=== PATIENT | female | born 1995 | race Caucasian/White ===

== ENCOUNTER → 2018-01-07 | Outpatient (CLI) | payer OTHER ==
--- NOTE | 2018-01-07 22:17 | MR ---
EXAMINATION TYPE: MR brain wo/w con DATE OF EXAM: 01/07/2018 COMPARISON: NONE HISTORY: MS Symptoms, Double Vision, Numbness, Weakness TECHNIQUE: Multiplanar, multisequence images of the brain and brainstem is performed without and with IV contras t, utilizing 5.5 mL intravenous Gadavist gadolinium contrast is administered intravenously. Demyelin ating disease protocol with additional Sagittal Flair sequence performed. FINDINGS: T2 Lesions Present : No Approximate Number of Lesions: N/A Locations Identified : N/A Size of Reference Lesion(s): N/A Enhancing Lesion(s) Present: No T1 Hypointense Lesion(s) Present: N/A Change from Prior: N/A Diffusion weighted images demonstrate no evidence of a recent infarct or other diffusion abnormality. There is no worrisome extra-axial fluid collection. The ventricular system and cisternal spaces ar e normal in size and appearance. The brain volume is age appropriate. Midline structures demonstrate normal morphology. The craniocervical junction appears within normal limits. Post contrast images demonstrate no abnormal enhancement. The dural venous sinuses appear pa tent. There is 1.3 cm mucous retention cyst or polyp inferior right maxillary sinus otherwise paranas al sinuses are clear. The globes are intact bilaterally. IMPRESSION: No suspicious white matter changes seen. No suspicious enhancement noted.
== END | disposition home or self-care (01) ==
LOC: RADMRIMAIN 20:58
PROVIDERS: ATTEND Psychiatry & Neurology Neurology
DX: G52.9 Cranial nerve disorder, unspecified (principal); G51.9 Disorder of facial nerve, unspecified
CPT/HCPCS: 70553; A9581

== ENCOUNTER → 2018-12-10 | Outpatient (CLI) | payer OTHER ==
--- NOTE | 2018-12-10 14:39 | US ---
EXAMINATION TYPE: Transabdominal DATE OF EXAM: 12/10/2018 2:17 PM COMPARISON: NONE CLINICAL HISTORY: Confirm Dates Z36. EXAM PERFORMED: Transabdominal (TA) EXAM MEASUREMENTS: GESTATIONAL AGE / DATING Physician Established: (10 weeks/4 days) EDC: 07/04/19 Dates by LMP: (10 weeks/4 days) EDC: 07/04/19 Dates by First Scan: ( weeks/ days) EDC: No previous Dates by Current Scan for: (10 weeks/ 6 days) EDC: 07/02/19 MATERNAL ANATOMY Uterus: 13.6 x 7.6 x 7.0 cm Right Ovary: 3.6 x 2.1 x 1.9 cm Left Ovary: 3.9 x 2.7 x 2.4 cm Post CDS / Adnexa: wnl Presence of free fluid: no Presence of corpus luteal cyst: no Presence of subchorionic bleed: no GESTATION / SURVEY CRL: 3.7 cm (10 weeks/4 days) MSD: 4.9 (11 weeks/0 days) Yolk Sac (normal less than 6mm): 0.3 cm Heart Rate: 183 bpm Rhythm: Normal IUP: Viable IUP Date of LMP: 09/27/2018 . Single live intrauterine gestation is confirmed as gestational sac, yolk sac, and pole are pres ent. No free fluid in pelvic cul-de-sac. Both ovaries are seen. There is no suspicious extra ovarian adnexal mass identified bilaterally. IMPRESSION: Single live intrauterine gestation is confirmed, mean crown-rump length is 3.7 cm corresp onding to a 10 week 4 day old fetus.
== END | disposition home or self-care (01) ==
LOC: RADUSWWP 13:51
PROVIDERS: ATTEND Obstetrics & Gynecology
DX: Z36.89 Encounter for other specified antenatal screening (principal); Z3A.10 10 weeks gestation of pregnancy
CPT/HCPCS: 76801

== ENCOUNTER → 2019-02-07 | Outpatient (CLI) | payer OTHER ==
--- NOTE | 2019-02-07 15:33 | US ---
EXAMINATION TYPE: US OB anatomy transabd DATE OF EXAM: 02/07/2019 COMPARISON: US HISTORY: O36.62X0 Large for dates 2nd trimester Anatomy scan TECHNIQUE: Transabdominal (TA) EXAM MEASUREMENTS: GESTATIONAL AGE / DATING Physician Established: (19 weeks/0 days) 07/04/2019 EDC: Dates by LMP: (19 weeks/0 days) EDC: 07/04/2019 Dates by First Scan: (19 weeks/2 days) EDC: 07/02/2019 Dates by Current Scan for: (18 weeks/5 days) EDC: 07/06/2019 SURVEY IUP: Single PLACENTA: Anterior PREVIA: No previa LUNA: 11.7 cm CERVICAL LENGTH (transabdominal: norm > 3.0cm): 4.2 cm BIOMETRY PRESENTATION: Breech BPD: 4.2 cm 18 weeks / 4 days HC: 16.1 cm 18 weeks / 6 days AC: 13.8 cm 19 weeks / 1 days FL: 2.9 cm 18 weeks / 5 days ESTIMATED WEIGHT IN GRAMS: 266 grams ESTIMATED WEIGHT IN LBS/OZ: 0 lbs. 9 oz. WEIGHT PERCENTAGE BASED ON ESTABLISHED DATE: 42.7 % HC/AC: 1.17 Normal FL/AC: 21 Normal HEART RATE: 151 bpm RHYTHM: Normal ANATOMY SEEN (within normal limits): * Lateral Vent (< 1 cm) 0.7 cm * Cisterna Magna (< 1.1 cm) 0.3 cm * Nuchal Fold (< 0.6 cm) 0.3 cm * Cerebellum (varies with age) 1.9 cm Choroid Plexus (bilateral) Midline Falx Cavus Septi Pellucidi Four Chamber Heart Outflow tracts: LVOT/RVOT Stomach Situs Nose / Lips Diaphragm Kidneys (bilateral) Bladder Cord Insert Three Vessel Cord Longitudinal Spine Transverse Spine Arms (bilateral) Legs (bilateral) Single, viable IUP/ Anatomy listed above visualized and appeared wnl. Images saved towards end of exa m shows possible echogenic bowel. IMPRESSION: Single viable intrauterine corresponding to ultrasound age 18 weeks 5 days with estimated d ate of delivery 07/06/2019. Possible echogenic bowel. Suggest follow-up.
== END | disposition home or self-care (01) ==
LOC: RADUSWWP 13:32
PROVIDERS: ATTEND Obstetrics & Gynecology
DX: O36.62X0 Maternal care for excessive fetal growth, second trimester, not applicable or unspecified (principal); Z3A.18 18 weeks gestation of pregnancy
CPT/HCPCS: 76811

== ENCOUNTER → 2019-02-18 | Outpatient (CLI) | payer OTHER ==
--- NOTE | 2019-02-19 12:49 | US ---
EXAMINATION TYPE: US OB >= 14 wk fetus DATE OF EXAM: 02/18/2019 COMPARISON: US 02/07/2019 CLINICAL HISTORY: Z36 Confirm dates TECHNIQUE: Transabdominal (TA) GESTATIONAL AGE / DATING Physician Established: (20 weeks/4 days) EDC: 07/04/2019 Dates by LMP: (20 weeks/4 days) EDC: 07/04/2019 Dates by First Scan: (20 weeks/6 days) EDC: 07/02/2019 Dates by Current Scan: (20 weeks/2 days) EDC: 07/06/2019 Beta HCG (if available): Not available at this time SURVEY IUP: Single PLACENTA: Anterior PREVIA: No Previa LUNA: 10.9 cm Normal CERVICAL LENGTH (transabdominal: norm > 3.0cm): 3.0 cm BIOMETRY PRESENTATION: Breech LIE: Longitudinal BPD: 4.4 cm 19 weeks / 3 days HC: 17.3 cm 19 weeks / 6 days AC: 14.6 cm 20 weeks / 0 days FL: 3.6 cm 21 weeks / 3 days ESTIMATED WEIGHT IN GRAMS: 357 grams ESTIMATED WEIGHT IN LBS/OZ: 0 lbs. 13 oz. WEIGHT PERCENTAGE BASED ON ESTABLISHED DATES: 40% HC/AC: 1.18 Normal FL/AC: 25% Normal HEART RATE: 147 bpm RHYTHM: Normal Viable IUP, measurements consistent with dates. Echogenic bowel is again noted. IMPRESSION: Single viable intrauterine consistent with reported dates. Echogenic bowel is again noted a nd unchanged from the recent prior exam. This should be correlated clinically.
== END | disposition home or self-care (01) ==
LOC: RADUSWWP 15:24
PROVIDERS: ATTEND Obstetrics & Gynecology
DX: Z36.9 Encounter for antenatal screening, unspecified (principal)
CPT/HCPCS: 76805

== ENCOUNTER 2019-05-21 20:15 | Outpatient (CLI) | payer OTHER ==
[2019-05-21 21:02] LABS: Appearance,Urine Clear (Clear); Bacteria,Urine Few /hpf; Bilirubin,Urine Negative (Negative); Blood,Urine Negative (Negative); Color,Urine Yellow; Glucose,Urine (UA) Negative (Negative); Ketones,Urine 1+ (Negative); Leukocyte Esterase,Urine Trace (Negative); Mucus,Urine Rare /hpf; Nitrite,Urine Negative (Negative); Protein,Urine Trace (Negative); RBC,Urine <1 /hpf (0-5); Specific Gravity,Urine 1.016 (1.001-1.035); Squamous Epithelial Cell,Urine 1 /hpf (0-4); WBC,Urine 2 /hpf (0-5)
[2019-05-21] MEDS: LACTATED RINGERS 1,000 ML IV SCH ×2 (22:35→23:04)
[2019-05-21 23:52] VITALS: BP 128/79; PULSE 97; RESP 16; TEMP 99
--- NOTE | 2019-05-22 07:59 | P.MSEPDOC ---
Presenting Problems - Arrival Data Date of Arrival on Unit: 05/21/19 Time of Arrival on Unit: 20:15 Mode of Transport: Ambulatory - Complaint OB-Reason for Admission/Chief Complaint: Possible Onset of Labor Comment: contractions since yesterday 1999, getting stronger, 2-3 min apart Medical History - Information : 3 Para: 1 Term: 1 : 0 Abortions: Spontaneous or Elective: 1 Number of Living Children: 1 - Gestational Age Gestational Age by YAMINI (wks/days): 33 Weeks and 5 Days Review of Systems - Review of Systems Constitutional: No problems Breast: No problems ENT: No problems Cardiovascular: No problems Respiratory: No problems Gastrointestinal: No problems Genitourinary: No problems Musculoskeletal: No problems Neurological: No problems Skin: No problems Vital Signs - Temperature Temperature: 99 F Temperature Source: Temporal Artery Scan - Pulse Right Brachial Pulse Rate: 97 Pulse Assessment Method: Automatic Cuff - Respirations Respiratory Rate: 16 Oxygen Delivery Method: Room Air - Blood Pressure Right Arm Sitting Blood Pressure: 128/79 Blood Pressure Mean: 95 Blood Pressure Source: Automatic Cuff Medical Screen Scoring (Pre) - Cervical Exam Dilation: 1-3 cm = 1 Membranes: Intact - Uterine Contractions Frequency: < 36 weeks = 6 Duration: > 40 seconds = 2 Intensity: N/A - Maternal Vital Signs Maternal Temperature: N/A Maternal Blood Pressure: N/A Signs of Preeclampsia: N/A Maternal Respirations: N/A - Maternal Trauma Maternal Trauma: N/A - Assessment - Baby A Baseline FHR: 130 Heart Rate - NICHD Category: Category I (Normal) = 0 NST: Reactive Position: N/A Station: N/A - Total Score - Baby A Total Score - Baby A: 9 - Total Score - Baby B Total Score - Baby B: 9 - Total Score - Baby C Total Score - Baby C: 9 - Level of Risk - Baby A Level of Risk - Baby A: Medium (6-9) - Level of Risk - Baby B Level of Risk - Baby B: Medium (6-9) - Level of Risk - Baby C Level of Risk - Baby C: Medium (6-9) Physician Notification (Pre) - Physician Notified Physician Notified Date: 05/21/19 Physician Notified Time: 11:34 New Order Received: Yes (discharge) - Notification Comment Comment: ffn negative, no further cervical change (1cm thick), contrations less painful. Pt comfortable going home. follow up appt Thursday 05/24 Disposition - Disposition OB Disposition: Discharge to home, Written follow up instructions reviewed Discharge Date: 05/21/19 Discharge Time: 23:52 I agree with the RN Medical Screening Exam: Yes Risk & Benefit of care provided described in d/c instruction: Yes Diagnosis: FALSE LABOR BEFORE 37 COMPLETED WEEKS OF GEST, THIRD TRI
== END 2019-05-21 22:53 | disposition home or self-care (01) ==
LOC: FBPOP 20:15
PROVIDERS: ATTEND Obstetrics & Gynecology
DX: O47.00 False labor before 37 completed weeks of gestation, unspecified trimester (principal); Z3A.33 33 weeks gestation of pregnancy
CPT/HCPCS: 59025; 81001; 82731; 96360; 99214

== ENCOUNTER 2019-06-28 06:01 | Inpatient (IN) | payer OTHER ==
--- NOTE | 2019-06-27 20:34 | P.HPOB ---
History of Present Illness H&P Date: 06/27/19 Chief Complaint: Induction of labor This is a 23 y.o. female, 3, para 1, with an estimated date of confinement of 07/04/2019, estimated gestational age of 39-1/7 weeks, who presents for induction of labor. She admits to good movement and irregular, frequent contractions. course has been essentially uncomplicated. There was suspicion of echogenic bowel on earlier ultrasound, but it was no longer present when she went to maternal medicine. labs: Hepatitis B surface antigen-neg RPR-NR Rubella-immune Blood type-A+ Antibody screen-neg HIV-NR Hemoglobin-12.2 Random glucose-69 1 hour glucola-69 Group B streptococcus-neg OB Hx: . 1 vaginal delivery at term. 1 miscarriage. [employer] Rounder Hx: No history of STDs. 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 Review of Systems Constitutional: Denies chills, Denies fever Eyes: denies blurred vision, denies pain Ears, nose, mouth and throat: Denies headache, Denies sore throat Cardiovascular: Denies chest pain, Denies shortness of breath Respiratory: Denies cough Gastrointestinal: Reports abdominal pain (irregular contractions) Genitourinary: Reports pelvic pain, Reports Musculoskeletal: Reports low back pain Integumentary: Denies pruritus, Denies rash Neurological: Denies numbness, Denies weakness Psychiatric: Denies anxiety, Denies depression Past Medical History Past Medical History: No Reported History History of Any Multi-Drug Resistant Organisms: None Reported Past Surgical History: No Surgical Hx Reported Past Psychological History: No Psychological Hx Reported Smoking Status: Former smoker Past Alcohol Use History: None Reported Past Drug Use History: None Reported Medications and Allergies Home Medications Medication Instructions Recorded Confirmed Type No Known Home Medications 05/21/19 05/21/19 History Allergies Allergy/AdvReac Type Severity Reaction Status Date / Time No Known Allergies Allergy Verified 05/21/19 20:33 Exam Osteopathic Statement: *. No significant issues noted on an osteopathic structural exam other than those noted in the History and Physical/Consult. HEENT: within normal limits Heart: regular rate and rhythm Lungs: clear to auscultation bilaterally Abdomen: Cervix: 1.5 cm/70%/-1 heart tones: 140s by doppler Extremities: neg. Homans Assessment and Plan (1) 39 weeks gestation of Status: Acute Code(s): Z3A.39 - 39 WEEKS GESTATION OF SNOMED Code(s): 05987631 Plan: Proceed with oxytocin induction of labor. Expectant management. Epidural anesthesia if desired.
[2019-06-28] MEDS ORDERED: LIDOCAINE 0.5% (PF) 5 MG/ML (50 ML SDV) SQ PRN (06:32)
[2019-06-28] MEDS ORDERED: LIDOCAINE 1% 20 ML VIAL (10MG/ML) FOR IV START INTRADERMA PRN (06:32)
[2019-06-28] MEDS ORDERED: OXYTOCIN 30 UNITS/500 ML NS 30 UNIT in SALINE 1 500ML.BAG IV SCH (06:32)
[2019-06-28] MEDS ORDERED: CARBOPROST TROMETHAMINE 250 MCG/ML 1 ML AMP IM PRN (06:32)
[2019-06-28] MEDS ORDERED: OXYTOCIN 10 UNIT/ML 1 ML VIAL IM PRN (06:32)
[2019-06-28] MEDS ORDERED: METHYLERGONOVINE 0.2 MG/ML 1 ML AMP IM PRN (06:32)
[2019-06-28] MEDS ORDERED: TERBUTALINE 1 MG/ML VIAL SQ PRN (06:32)
[2019-06-28] MEDS: LACTATED RINGERS 1,000 ML IV SCH ×2 (06:41→09:48)
[2019-06-28 06:44] LABS: Basophils # (A) 0.1 k/uL (0-0.2); Basophils % (A) 1 %; Eosinophils % (A) 1 %; HCT 35.1 % (34.0-46.0); HGB 11.4 gm/dL (11.4-16.0); Lymphocytes % (A) 16 %; MCH 27.5 pg (25.0-35.0); MCHC 32.5 g/dL (31.0-37.0); MCV 84.8 fL (80.0-100.0); Monocytes # (A) 0.4 k/uL (0-1.0); Monocytes % (A) 6 %; Neutrophils # (A) 4.4 k/uL (1.3-7.7); Neutrophils % (A) 74 %; Platelet Count 142 k/uL (150-450); Poikilocytosis Slight; RBC 4.14 m/uL (3.80-5.40)
[2019-06-28] MEDS ORDERED: fentaNYL (PF) 50 MCG/ML 5 ML AMP ONE (09:43)
[2019-06-28] MEDS ORDERED: ROPIVACAINE 5MG/ML 20ML VIAL ONE (09:43)
[2019-06-28] MEDS ORDERED: SODIUM CHLORIDE 0.9% 100 ML BAG ONE (09:43)
[2019-06-28] MEDS ORDERED: ROPIVACAINE 100 MG, fentaNYL (PF) 200 MCG in SODIUM CHLORIDE 0.9% 76 ML EPIDURAL ONE (10:06)
[2019-06-28] MEDS ORDERED: diphenhydrAMINE 25 MG CAP PO PRN (11:59)
[2019-06-28] MEDS ORDERED: ZOLPIDEM 5 MG TAB PO PRN (11:59)
[2019-06-28] MEDS ORDERED: diphenhydrAMINE 50 MG CAP PO PRN (11:59)
[2019-06-28] MEDS ORDERED: HYDROCORTISONE 2.5% RECTAL CREAM 30 GM TUBE RECTAL PRN (11:59)
[2019-06-28] MEDS ORDERED: LANOLIN CREAM 5 GM TUBE TOPICAL PRN (11:59)
[2019-06-28] MEDS ORDERED: WITCH HAZEL 1 EACH MED..PAD TOPICAL PRN (11:59)
[2019-06-28] MEDS ORDERED: ACETAMINOPHEN TAB 325 MG TAB PO PRN (11:59)
[2019-06-28] MEDS ORDERED: OXYTOCIN 20 UNITS/1000 ML NS 1,000 ML IV SCH (11:59)
[2019-06-28] MEDS ORDERED: SIMETHICONE 80 MG CHEWABLE PO PRN (11:59)
[2019-06-28] MEDS ORDERED: BENZOCAINE/MENTHOL SPRAY 1 GM/SPRAY AEROSOL TOPICAL PRN (11:59)
[2019-06-28] MEDS ORDERED: diphenhydrAMINE 50 MG/ML 1 ML VIAL IVP PRN ×2 (11:59)
--- NOTE | 2019-06-28 13:02 | P.PROBDLV ---
Vaginal Delivery Note - . Vaginal Delivery Note: The patient progressed to complete dilation after oxytocin induction of labor and artificial rupture of membranes with clear fluid noted. She did receive epidural anesthesia while in labor. Once reaching complete, she began pushing. Infant's head reached a crown. With one further push, the 's head delivered across the perineum followed by the anterior shoulder. Nose and mouth were bulb suctioned at the perineum. With one remaining push, the remainder the easily delivered and was placed on mother's abdomen. A viable female infant was noted with scores of 8 at 1 minute and 9 at 5 minutes and weight of 7 lbs. 7 oz. Placenta delivered shortly thereafter, intact, with a three-vessel cord. Uterus contracted well after oxytocin was given and uterine massage was carried out. Inspection of the perineum revealed no perineal lacerations. Estimated blood loss is approximately 150 mL's. Both mother and infant are in stable condition.
[2019-06-28] MEDS: IBUPROFEN 600 MG TAB PO PRN (21:31)
[2019-06-28] MEDS: SENNOSIDES-DOCUSATE SODIUM 1 EACH TAB PO SCH (22:20)
[2019-06-29 06:59] LABS: Basophils # (A) 0.1 k/uL (0-0.2); Basophils % (A) 1 %; Eosinophils % (A) 0 %; HCT 32.6 % (34.0-46.0); HGB 10.5 gm/dL (11.4-16.0); Lymphocytes # (A) 1.2 k/uL (1.0-4.8); Lymphocytes % (A) 16 %; MCH 27.6 pg (25.0-35.0); MCHC 32.3 g/dL (31.0-37.0); MCV 85.4 fL (80.0-100.0); Mean Platelet Volume 10.2; Monocytes # (A) 0.5 k/uL (0-1.0); Monocytes % (A) 6 %; Neutrophils # (A) 5.6 k/uL (1.3-7.7); Neutrophils % (A) 75 %; Platelet Count 136 k/uL (150-450); RBC 3.82 m/uL (3.80-5.40); RDW 12.9 % (11.5-15.5); WBC 7.4 k/uL (3.8-10.6)
[2019-06-29] MEDS: SENNOSIDES-DOCUSATE SODIUM 1 EACH TAB PO SCH (08:00)
--- NOTE | 2019-06-29 08:47 | P.DS ---
Providers Date of admission: 06/28/19 06:01 Expected date of discharge: 06/29/19 Attending physician: Ashley Estrada Primary care physician: Stated None - Discharge Diagnosis(es) (1) 39 weeks gestation of Current Visit: No Status: Acute Hospital Course: This is a 23-year-old female 3 para 1 at 39 and one sevenths weeks who presented for induction of labor. She underwent oxytocin induction of labor and delivered vaginally a viable female infant with scores of 8 at 1 minute and 9 at 5 minutes and weight of 7 lbs. 7 oz. Her course has been uncomplicated. She is bottle feeding. Lochia is decreasing. Pain is well-controlled. Vital signs are stable. Abdomen is soft with fundus firm and nontender. Extremities show negative Homans. Impression is status post vaginal delivery day #1. Plan is to discharge home today. Routine instructions are given. She is advised follow-up in the office in 6 weeks for a check. She is advised to call the office if she has any further questions or concerns prior to her point in time. Procedures: Oxytocin induction of labor Spontaneous vaginal delivery of a viable female on 06/28/2019 Patient Condition at Discharge: Stable Plan - Discharge Summary New Discharge Prescriptions: No Action Pnv No.95/Ferrous Fum/Folic AC [ Multivitamin Tablet] 1 each PO DAILY Discharge Medication List Pnv No.95/Ferrous Fum/Folic AC [ Multivitamin Tablet] 1 each PO DAILY 06/28/19 [History] Follow up Appointment(s)/Referral(s): Ashley Estrada DO [Doctor of Osteopathic Medicine] - 6 Weeks Activity/Diet/Wound Care/Special Instructions: Instructions 1. Do not begin any exercise program for 3 weeks. 2. Do not resume sexual relations for 3 weeks or longer if uncomfortable. 3. You may take tub baths or showers at any time. 4. You may use tampons if desired after 3 weeks. 5. Keep the area of episiotomy (stitches) clean and dry. 6. If you are not nursing, wear a good fitting, supportive bra during the day and limit fluid intake for at least 1 week to prevent breast engorgement. 7. Call the office, [phone], within the next week to make appointment for your 6 week checkup if it has not already been made. 8. Report any of the following occurrences to the doctor promptly: a. Heavy, excessive bleeding b. Chills, fever c. Burning or frequency of urination d. Pain or redness and breasts if nursing e. Increasing pain or swelling in episiotomy (stitches). In addition to the above instructions, the following additional should be followed: 1. No heavy lifting or straining (exercising) until after 6 week checkup. 2. Keep abdominal incision clean and dry: You may wear a dressing if more comfortable. 3. Make office appointment for 10 days after going home or as instructed by her doctor. Discharge Disposition: HOME SELF-CARE
[2019-06-29 10:50] VITALS: BP 124/74; PULSE 64; RESP 18; TEMP 98.4
[2019-06-29] MEDS: IBUPROFEN 600 MG TAB PO PRN (11:07)
== END 2019-06-29 14:01 | disposition home or self-care (01) | DRG 807 ==
LOC: 4FBP 06:01
PROVIDERS: ADMIT Obstetrics & Gynecology; ATTEND Obstetrics & Gynecology
PROC: 10E0XZZ Delivery of Products of Conception, External Approach (ICD-10-PCS; principal; 2019-06-28)
PROC: 3E033VJ Introduction of Other Hormone into Peripheral Vein, Percutaneous Approach (ICD-10-PCS; 2019-06-28)
PROC: 10907ZC Drainage of Amniotic Fluid, Therapeutic from Products of Conception, Via Natural or Artificial Opening (ICD-10-PCS; 2019-06-28)
PROC: 00HU33Z Insertion of Infusion Device into Spinal Canal, Percutaneous Approach (ICD-10-PCS; 2019-06-28)
PROC: 3E0R3BZ Introduction of Anesthetic Agent into Spinal Canal, Percutaneous Approach (ICD-10-PCS; 2019-06-28)
DX: O80 Encounter for full-term uncomplicated delivery (principal); Z37.0 Single live birth; Z3A.39 39 weeks gestation of pregnancy; Z79.899 Other long term (current) drug therapy; Z87.891 Personal history of nicotine dependence
CPT/HCPCS: 85025; 86850; 86900; 86901

== ENCOUNTER → 2023-09-11 | Outpatient (CLI) | payer BC ==
--- NOTE | 2023-09-12 20:56 | US ---
EXAMINATION TYPE: US OB >= 14 wk fetus DATE OF EXAM: 09/11/2023 COMPARISON: None CLINICAL INDICATION: Female, 28 years old with history of O36.63X0 GROWTH; 3rd trimester growth TECHNIQUE: OBTA GESTATIONAL AGE / DATING Physician Established: (35 weeks/3 days) EDC: 10/13/2023 Dates by LMP: LMP unknown Dates by First Scan: No previous this is first scan Dates by Current Scan: (35 weeks/0 days) EDC: 10/16/2023 SURVEY IUP: Single PLACENTA: Fundal PREVIA: No Previa LUNA: 15.2 cm Normal CERVICAL LENGTH (transabdominal: norm > 3.0cm): 3.9 cm BIOMETRY PRESENTATION: Vertex LIE: Longitudinal BPD: 8.7 cm 35 weeks / 1 days HC: 32.9 cm 37 weeks / 4 days AC: 29.1 cm 33 weeks / 1 days FL: 6.6 cm 33 weeks / 6 days ESTIMATED WEIGHT IN GRAMS: 2305 grams ESTIMATED WEIGHT IN LBS/OZ: 5 lbs. 1 oz. WEIGHT PERCENTAGE BASED ON ESTABLISHED DATES: 13% HC/AC: 1.1 Normal FL/AC: 23 Normal HEART RATE: 130 bpm RHYTHM: Normal IMPRESSION: 1. Single intrauterine gestation estimated at 35 weeks 0 days based on the current ultrasound measure ments. Cardiac activity measures 130 bpm.
== END | disposition home or self-care (01) ==
LOC: RADUSWWP 09:20
PROVIDERS: ATTEND Obstetrics & Gynecology
DX: O36.63X0 Maternal care for excessive fetal growth, third trimester, not applicable or unspecified (principal)
CPT/HCPCS: 76805

== ENCOUNTER → 2023-10-09 | Outpatient (CLI) | payer BC ==
[2023-10-09 17:36] VITALS: BP 138/86; PULSE 100; RESP 19; TEMP 97.3
--- NOTE | 2023-11-11 19:33 | P.MSEPDOC ---
Presenting Problems - Arrival Data Date of Arrival on Unit: 10/09/23 Time of Arrival on Unit: 16:06 Mode of Transport: Ambulatory - Complaint OB-Reason for Admission/Chief Complaint: Rule Out SROM Comment: Pt presented with c/o leaking fluid since yesterday Medical History - Information : 5 Para: 2 Term: 2 : 0 Abortions: Spontaneous or Elective: 2 Number of Living Children: 2 - Gestational Age Gestational Age by YAMINI (wks/days): 39 Weeks and 3 Days Review of Systems - Review of Systems Constitutional: No problems Breast: No problems ENT: No problems Cardiovascular: No problems Respiratory: No problems Gastrointestinal: No problems Genitourinary: No problems Musculoskeletal: No problems Neurological: No problems Skin: No problems Vital Signs - Temperature Temperature: 97.3 F Temperature Source: Temporal Artery Scan - Pulse Right Pulse Rate: 100 Pulse Assessment Method: Pulse Oximetry - Respirations Respiratory Rate: 19 Oxygen Delivery Method: Room Air O2 Sat by Pulse Oximetry: 98 - Blood Pressure Right Arm Blood Pressure: 138/86 Blood Pressure Mean: 103 Blood Pressure Source: Automatic Cuff Medical Screen Scoring - Cervical Exam Dilation (cm): 3 Effacement (%): 80 Station: -2 Membranes: Intact - Assessment - Baby A Baseline FHR: 130 Heart Rate - NICHD Category: Category I (Normal) NST: Reactive Physician Notification - Physician Notified Physician Notified Date: 10/09/23 Physician Notified Time: 16:43 Physician: Terri Gramajo Order Received: Yes - Notification Comment Comment: Okay to d/c home Maternal Triage Index - Maternal Triage Index Presenting for scheduled procedure w/no complaint: No - Stat/Priority 1 Stat Priority 1: No - Urgent/Priority 2 Urgent Priority 2: No - Prompt/Priority 3 Prompt Priority 3: Yes Criteria Met for Priority 3: Pt presented with c/o leaking fluid since yesterday, and ctx on and off for last few days Disposition - Disposition OB Disposition: Discharge to home Discharge Date: 10/09/23 Discharge Time: 16:55 I agree with the RN Medical Screening Exam: Yes Case reviewed; plan agreed upon as documented in EMR&OBIX.: Yes Diagnosis: rule out labor
== END ==
LOC: FBPOP 16:06
PROVIDERS: ATTEND Obstetrics & Gynecology
DX: O47.1 False labor at or after 37 completed weeks of gestation (principal); Z3A.39 39 weeks gestation of pregnancy; Z87.891 Personal history of nicotine dependence
CPT/HCPCS: 59025; 99213

== ENCOUNTER 2023-10-11 11:27 | Inpatient (IN) | payer BC ==
[2023-10-11] MEDS ORDERED: OXYTOCIN 10 UNIT/ML 1 ML VIAL IM PRN (11:41)
[2023-10-11] MEDS ORDERED: TRANEXAMIC 1,000 MG/100ML-NACL 1,000 MG in EMPTY BAG 1 BAG IV PRN (11:41)
[2023-10-11] MEDS ORDERED: TERBUTALINE 1 MG/ML VIAL SQ PRN (11:41)
[2023-10-11] MEDS ORDERED: CARBOPROST TROMETHAMINE 250 MCG/ML 1 ML AMP IM PRN (11:41)
[2023-10-11] MEDS ORDERED: miSOPROStoL 200 MCG TAB PO PRN (11:41)
[2023-10-11] MEDS ORDERED: METHYLERGONOVINE 0.2 MG/ML 1 ML AMP IM PRN (11:41)
[2023-10-11] MEDS ORDERED: LIDOCAINE 0.5% (PF) 5 MG/ML (50 ML SDV) SQ PRN (11:41)
[2023-10-11] MEDS ORDERED: OXYTOCIN 30 UNITS/500 ML NS 30 UNIT in SALINE 1 500ML.BAG IV SCH ×2 (11:45→15:00)
--- NOTE | 2023-10-11 12:16 | P.HPOB ---
History of Present Illness H&P Date: 10/11/23 Chief Complaint: Labor at 39 and one sevenths weeks This is a 28-year-old 5 para 20-2 woman who is admitted at 39 and one sevenths weeks gestation in spontaneous active labor. Patient's has been managed by Dr. Cristobal up until this point. record is reviewed in detail. She's had an uncomplicated . She has a history of 2 previous normal spontaneous vaginal deliveries. Blood type A+ and group B strep negative. Upon initial evaluation on labor and delivery triage the patient found to be actively soni and is 7+ centimeters dilated she denies leakage of fluid or vaginal bleeding. Review of Systems All systems: negative Past Medical History Past Medical History: No Reported History History of Any Multi-Drug Resistant Organisms: None Reported Past Surgical History: No Surgical Hx Reported Past Anesthesia/Blood Transfusion Reactions: No Reported Reaction Past Psychological History: No Psychological Hx Reported Smoking Status: Former smoker Past Alcohol Use History: None Reported Past Drug Use History: None Reported - Past Family History Father Family Medical History: No Reported History Medications and Allergies Home Medications Medication Instructions Recorded Confirmed Type Pnv No.95/Ferrous Fum/Folic AC 1 each PO DAILY 06/28/19 10/11/23 History [ Multivitamin Tablet] Allergies Allergy/AdvReac Type Severity Reaction Status Date / Time No Known Allergies Allergy Verified 10/09/23 16:27 Exam Vital Signs Temp Pulse Resp BP Pulse Ox 10/11/23 11:57 98.1 F 83 16 130/83 100 Intake and Output 10/10/23 10/11/23 10/11/23 22:59 06:59 14:59 Other: Weight 63.957 kg Assessment and Plan (1) 39 weeks gestation of Current Visit: No Status: Acute Code(s): Z3A.39 - 39 WEEKS GESTATION OF SNOMED Code(s): 99914445 (2) Spontaneous onset of labor Current Visit: Yes Status: Acute Code(s): HNH1736 - SNOMED Code(s): 71258762 Plan: 28-year-old 5 para 2 woman at 39 and one sevenths weeks gestation in spontaneous active labor. Group B strep negative and Rh+. May have epidural anesthetic for analgesia. status currently reassuring by external monitoring, category 1 heart tones. Anticipate normal spontaneous vaginal delivery.
[2023-10-11 12:23] LABS: Basophils % (A) 0 %; Eosinophils % (A) 0 %; HCT 34.3 % (34.0-46.0); HGB 10.9 gm/dL (11.4-16.0); Hypochromasia Slight; Lymphocytes # (A) 0.9 k/uL (1.0-4.8); Lymphocytes % (A) 11 %; MCH 26.7 pg (25.0-35.0); MCHC 31.9 g/dL (31.0-37.0); MCV 83.7 fL (80.0-100.0); Mean Platelet Volume 10.5; Monocytes # (A) 0.4 k/uL (0-1.0); Monocytes % (A) 5 %; Neutrophils % (A) 82 %; Platelet Count 160 k/uL (150-450); RDW 13.5 % (11.5-15.5); WBC 8.5 k/uL (3.8-10.6)
[2023-10-11 12:27] VITALS: RESP 16
[2023-10-11] MEDS: LACTATED RINGERS 1,000 ML IV SCH (12:39)
[2023-10-11] MEDS ORDERED: BENZOCAINE/MENTHOL SPRAY 1 GM/SPRAY AEROSOL TOPICAL PRN (14:56)
[2023-10-11] MEDS ORDERED: diphenhydrAMINE 50 MG CAP PO PRN (14:56)
[2023-10-11] MEDS ORDERED: diphenhydrAMINE 50 MG/ML 1 ML VIAL IVP PRN ×2 (14:56)
[2023-10-11] MEDS ORDERED: SIMETHICONE 80 MG CHEWABLE PO PRN (14:56)
[2023-10-11] MEDS ORDERED: diphenhydrAMINE 25 MG CAP PO PRN (14:56)
[2023-10-11] MEDS ORDERED: LANOLIN CREAM 1 GM TUBE TOPICAL PRN (14:56)
[2023-10-11] MEDS ORDERED: ACETAMINOPHEN TAB 325 MG TAB PO PRN (14:56)
[2023-10-11] MEDS ORDERED: HYDROCORTISONE 2.5% RECTAL CREAM 30 GM TUBE RECTAL PRN (14:56)
[2023-10-11] MEDS ORDERED: ZOLPIDEM 5 MG TAB PO PRN (14:56)
--- NOTE | 2023-10-11 14:56 | P.PROBDLV ---
Vaginal Delivery Note - . Vaginal Delivery Note: Findings: Male infant in the vertex presentation left occiput anterior. Apgars 9 at 1 minute and 9 at 5 minutes. Nuchal cord 1. Weight 7 lbs. 11 oz., 3495 g. Intact, three-vessel cord. No perineal lacerations. EBL 150 mL's. Delivery summary: This is a 28-year-old 5 para 20-2 woman who is admitted at 39-5/7 weeks gestation in spontaneous active labor. Her has been uncomplicated. Please see the history and physical for details. Following admission she was 7+ centimeters dilated. She received an epidural anesthetic. Artificial rupture of membranes is undertaken. She reached complete cervical dilation and commenced pushing. She had category 2 heart tones during the second stage of labor with deep variable heart rate decelerations. She was making excell progress with maternal effort. With she was repositioned, prepped and draped in the dorsal modified Chase position. With additional maternal effort the head delivered from the left occiput anterior position. There was a tight nuchal cord that was unable to be reduced. The rest the infant was then delivered onto the field and the cord was reduced. The nose and mouth were bulb suctioned. The infant was placed on the maternal abdomen where the cord was clamped and cut. Apgars were 9 at 1 minute and 9 at 5 minutes. An intact three-vessel cord placenta was expressed after a two-minute third stage of labor. It was inspected and noted to be intact. The perineum, vagina and cervix were inspected and noted to be intact. The uterus was massaged and was firm at the level of the umbilicus. The patient received Pitocin following delivery of the placenta. All counts were correct. Both mother and infant were doing well post delivery in the room.
[2023-10-11] MEDS: SENNOSIDES-DOCUSATE SODIUM 1 EACH TAB PO SCH (20:24)
[2023-10-11] MEDS: IBUPROFEN 600 MG TAB PO PRN (22:30)
[2023-10-12 07:28] LABS: Basophils % (A) 0 %; Eosinophils % (A) 0 %; HCT 34.3 % (34.0-46.0); Hypochromasia Slight; Lymphocytes # (A) 1.3 k/uL (1.0-4.8); Lymphocytes % (A) 13 %; MCHC 31.9 g/dL (31.0-37.0); MCV 84.5 fL (80.0-100.0); Mean Platelet Volume 10.6; Monocytes # (A) 0.6 k/uL (0-1.0); Monocytes % (A) 5 %; Neutrophils # (A) 8.1 k/uL (1.3-7.7); Neutrophils % (A) 80 %; Platelet Count 149 k/uL (150-450); RBC 4.06 m/uL (3.80-5.40); RDW 13.4 % (11.5-15.5); WBC 10.2 k/uL (3.8-10.6)
--- NOTE | 2023-10-12 12:06 | P.DS ---
Providers Date of admission: 10/11/23 11:41 Expected date of discharge: 10/12/23 Attending physician: Kaye Cristobal Primary care physician: Stated None - Discharge Diagnosis(es) (1) Normal vaginal delivery Current Visit: Yes Status: Acute Hospital Course: Patient presented in active labor. She underwent a normal vaginal delivery. course was uneventful. She denies nausea, vomiting, chest pain, shortness of breath or calf pain. Patient be discharged home day #1 in stable condition to follow-up with me in 6 weeks. Plan - Discharge Summary New Discharge Prescriptions: New Ibuprofen [Motrin] 600 mg PO Q6HR PRN #30 tab PRN Reason: Mild Pain (Scale 1 To 3) No Action Pnv No.95/Ferrous Fum/Folic AC [ Multivitamin Tablet] 1 each PO DAILY Discharge Medication List Pnv No.95/Ferrous Fum/Folic AC [ Multivitamin Tablet] 1 each PO DAILY 06/28/19 [History] Ibuprofen [Motrin] 600 mg PO Q6HR PRN #30 tab 10/12/23 [Rx] Follow up Appointment(s)/Referral(s): Kaye Cristobal DO [Doctor of Osteopathic Medicine] - 6 Weeks Discharge Disposition: HOME SELF-CARE
[2023-10-12 13:29] VITALS: BP 117/76; PULSE 76; TEMP 98.6
== END 2023-10-12 15:14 | disposition home or self-care (01) | DRG 807 ==
LOC: FBPOP 11:27 → 4FBP 11:41
PROVIDERS: ADMIT Obstetrics & Gynecology; ATTEND Obstetrics & Gynecology
PROC: 10907ZC Drainage of Amniotic Fluid, Therapeutic from Products of Conception, Via Natural or Artificial Opening (ICD-10-PCS; principal; 2023-10-11)
PROC: 10E0XZZ Delivery of Products of Conception, External Approach (ICD-10-PCS; principal; 2023-10-11)
DX: O69.1XX0 Labor and delivery complicated by cord around neck, with compression, not applicable or unspecified (principal); O76 Abnormality in fetal heart rate and rhythm complicating labor and delivery; Z28.310 Unvaccinated for COVID-19; Z87.891 Personal history of nicotine dependence; Z3A.39 39 weeks gestation of pregnancy; Z37.0 Single live birth
CPT/HCPCS: 59025; 85025; 86850; 86900; 86901; 99213